=== PATIENT | male | born 1950 | race Caucasian/White ===

== ENCOUNTER 2022-02-05 07:05 | Emergency (ER) | payer MEDICARE, SELFPAY ==
[2022-02-05 07:09] VITALS: BP 154/87; PULSE 86; RESP 16; TEMP 36.5; O2SAT 97; BMI 26.7
[2022-02-05 07:14] VITALS: BP 154/87; PULSE 86; O2SAT 96
[2022-02-05 07:18] VITALS: BMI 26.7
--- NOTE | 2022-02-05 07:19 | XR_ITS ---
FINAL REPORT CLINICAL HISTORY: fall, swelling FINDINGS: Right ankle Three views were obtained. There is no acute fracture or dislocation. The joint spaces appear normal. There is extensive calcification and ossification in the Achilles tendon, particularly in the region of the musculotendinous junction. There is calcification in the plantar fascia. IMPRESSION: Calcification and ossification as above, probably related to prior Achilles tendon tear. Reviewed, Interpreted and Dictated by Crispin Nicholas MD Transcribed by Alicia Conner Authenticated and [facility]
--- NOTE | 2022-02-05 07:20 | PC.NURSE ---
rad notified of xray order ER MD martin at [facility]
--- NOTE | 2022-02-05 07:22 | XR_ITS ---
FINAL REPORT CLINICAL HISTORY: fall, swelling FINDINGS: Right foot Three views were obtained. There is no acute fracture or dislocation. There are moderate hypertrophic changes of the 1st metatarsophalangeal joint. There is degenerative cyst formation. Findings consistent with moderate osteoarthritis. IMPRESSION: Moderate osteoarthritis. Reviewed, Interpreted and Dictated by Crispin Nicholas MD Transcribed by Alicia Conner Authenticated and [facility]
--- NOTE | 2022-02-05 07:29 | HMH.EDLOEX ---
Discharge Plan Disposition Patient Disposition: Home, Self-Care Condition: Good Referrals Follow up/Referrals: Provider,Referral, [Primary Care Provider] - See instructions Activity Restrictions/Add. Instructions Additional Instructions/Restrictions: Ice 20 minutes 4-5 times a day and elevate ankle for 2 days. Use air cast and a/or Lev wrap for 2 weeks. Ibuprofen for pain. Your x-ray shows calcifications in your Achilles tendon and plantar fascia. X-ray disc is being provided to you for follow-up with your primary care provider or orthopedist when you return home. Clinical Impressions Clinical Impression: Ankle sprain and strain Discharge ED Provider: Chris Tellez Lower Extremity Injury HPI <Chris Tellez MD - Last Filed: 02/05/22 08:32> General Chief Complaint: Extremity Injury, Lower Stated Complaint: AO 02/03/2022 r ankle Time Seen by Provider: 02/05/22 07:15 Mode of Arrival: Ambulatory Source of Information: Patient Limitations: No Limitations Description of Symptoms (Recalled from ER Triage Doc. by RN): Pt c/o R ankle pain r/t fall tuesday. Pt reports his foot slipped out from under him causing him to fall. Swelling noted to R ankle. +pulse noted Pt denies numbness, tingling, decreased sensation. History of Present Illness HPI Narrative: pt with acute injury to rt foot and ankle no other c/o MD complaint: ankle injury and foot injury Onset (ago): day(s) Injury: Right: knee and foot Type of Injury: unknown Place: home Severity: moderate Exacerbating factors: weight bearing and movement Context: walking Associated symptoms: swelling and able to partially bear weight Other symptoms: none Related Data Allergies Allergy/AdvReac Type Severity Reaction Status Date / Time No Known Allergies Allergy Verified 02/05/22 07:19 [facility] <Chris Tellez MD - Last Filed: 02/05/22 08:32> [facility] Medical History (Updated 02/05/22 @ 08:32 by Chris Tellez MD) Seizure disorder Social History Smoking Status: Never smoker <Chris Tellez MD - Last Filed: 02/05/22 08:32> ROS Obtained: Yes All systems reviewed & no additional complaints except as documented Physical Exam <Chris Tellez MD - Last Filed: 02/05/22 08:32> General General appearance: alert Head Head exam: normocephalic Eye Eye exam: Present PERRL and EOMI ENT ENT exam: Present mucous membranes moist Neck Neck exam: Absent trachea midline Respiratory Respiratory exam: Absent respiratory distress Cardiovascular Cardiovascular exam: Present regular rate Abdominal Exam Abdominal exam: Present soft Expanded Lower Extremity Exam Right: Hip/Pelvis exam: Present pelvis stable Lower leg exam: Present Achilles tendon intact Ankle exam: Present tenderness and swelling; Absent full ROM Foot/toe exam: Present tenderness and swelling; Absent full ROM, foreign body or calcaneal tenderness Neurovascular/Tendon exam: Absent pulse deficit Neurological Exam Neurological exam: Present alert, oriented X3 and CN II-XII intact Skin Skin exam: Absent rash Medical Decision Making <Chris Tellez MD - Last Filed: 02/05/22 08:32> Medical Records Medical records reviewed: Yes I reviewed the patient's medical records. [place] Inquiry Pt receiving controlled substance: No Vital Signs: 02/05/22 07:09 02/05/22 07:14 02/05/22 07:51 Temperature 97.7 F Temperature Source Oral Pulse Rate 86 73 Pulse Rate [Left Radial] 86 Respiratory Rate 16 Blood Pressure 154/87 H 126/65 Blood Pressure [Left Arm] 154/87 H Blood Pressure Mean [Left Arm] 109 Blood Pressure Source [Left Arm] Automatic Cuff Blood Pressure Position [Left Arm] Sitting 02 Sat by Pulse Oximetry 97 96 94 L Oxygen Delivery Method Room Air Lab Data Lab results reviewed: Yes I reviewed the patient's lab results. Orders (Tests/Meds): ORDERS Category Date Time Status Foot XR right minimum 3 views [XR foot RT m
[2022-02-05 07:51] VITALS: BP 126/65; PULSE 73; O2SAT 94
--- NOTE | 2022-02-05 08:34 | PC.NURSE ---
contacted rad to check on status of xray, staff states pts xrays are in line next to be read. updated pt. Pt states no needs at this time.
--- NOTE | 2022-02-05 09:08 | PC.NURSE ---
contacted rad to check on status of xray report, spoke with felicia, states there is a preliminary report she is going to fax down
--- NOTE | 2022-02-05 09:31 | PC.NURSE ---
Called radiology for disk of patient ankle.
[2022-02-05 09:39] VITALS: BP 126/65; PULSE 73; RESP 16; TEMP 36.5; O2SAT 94
== END 2022-02-05 09:45 | disposition home or self-care (01) ==
PROVIDERS: Emergency Provider Emergency Medicine
DX: S93.401A Sprain of unspecified ligament of right ankle, initial encounter (principal); W18.39XA Other fall on same level, initial encounter; Y93.79 Activity, other specified sports and athletics
CPT/HCPCS: 73610; 73630; 99283